=== PATIENT | female | born 1990 | race Caucasian/White ===

== ENCOUNTER 2024-05-19 07:01 | Emergency (ER) | payer OTHER, SELFPAY ==
[2024-05-19 07:07] VITALS: BP 160/94
--- NOTE | 2024-05-19 08:06 | ED.GENMED ---
History of Present Illness
General
Chief Complaint: Chest Pain
Source: patient
Exam Limitations: none
Time Seen by Provider: 05/19/24 07:56
History of Present Illness
History of Present Illness:
34-year-old female otherwise healthy presents complaining of intermittent chest discomfort over the past several months. Discomfort is a dull ache and lasts less than a minute. Sometimes it is made worse with eating. Sometimes is made worse with
exertion. She denies any palpitations. She denies shortness of breath. No recent travel or surgery. No leg swelling or calf pain. No fevers. No other complaints at this time. No family history of cardiac disease. She does not smoke
Phy Exam
Physical Exam
Physical Exam:
General: Well-appearing female no acute respiratory distress
HEENT: Normocephalic atraumatic
Heart: Regular rate and rhythm with no audible murmurs
Lungs: Clear no wheeze
Abdomen is soft nontender nondistended
Extremities: No cyanosis
Scores
Heart Score for Chest Pain Patients
STEMI patient?: No
History: Slightly or Non-Suspicious
ECG: Normal
Age: </= 45 years
Risk Factors: No Risk Factors
Troponin: </= Normal Limit
Heart Score for Chest Pain Patients: 0
Heart Score Risk: 2.5% MACE over next 6 weeks
Course
Orders/Labs/Results
Orders:
Orders
05/19/24 07:11
Electrocardiogram (*1) Urgent
Reason for Study: Chest Pain
EKG- Treatment ONCE
05/19/24 08:04
Test Result ONCE
05/19/24 08:19
Complete Blood Count/With Diff Urgent
Comprehensive Metabolic Panel Urgent
D-Dimer Urgent
HCG, Serum Qualitative Screen Urgent
Lipase Urgent
Troponin I Urgent
05/19/24 08:45
CT Chest PE Study Urgent
Comment:
Reason For Exam: chest pain
Abnormal Lab Results
05/19/24
08:19
Hgb 11.4 L g/dL
(12.0-16.0)
Hct 35.5 L %
(37.0-47.0)
MCV 72.2 L fL
(81.0-99.0)
MCH 23.2 L pg
(27.0-31.0)
MCHC 32.1 L g/dL
(33.0-37.0)
RDW 16.5 H %
(11.5-14.5)
D-Dimer 0.73 H ug/mlFEU
(0.00-0.50)
05/19/24 08:19
05/19/24 08:19
Vital Signs
Initial and Last Documented VS:
Initial Vital Signs
Temp Pulse Resp BP Pulse Ox
98.7 F 117 18 160/94 98
05/19/24 07:07 05/19/24 07:07 05/19/24 07:07 05/19/24 07:07 05/19/24 07:07
Last Documented Vital Signs
Temp Pulse Resp BP Pulse Ox
98.7 F 68 18 128/70 98
05/19/24 07:07 05/19/24 11:16 05/19/24 11:16 05/19/24 11:16 05/19/24 11:16
MDM/Problems Addressed
Differential Diagnosis Includes:
Chest pain atypical in nature. EKG shows sinus rhythm. Will obtain labs including troponin lipase and D-dimer. Do not suspect PE given stable vital signs and lack of risk factors.
*Critical Care Note
Total Time (30-74mins, 75-104mins- exclusive of procedures): Not Applicable
Update Note
Update Note:
D-dimer slightly elevated. CT of the chest was ordered which was negative for any acute cardiopulmonary abnormality. Troponin undetectable. No arrhythmias noted on monitor. Patient with atypical chest pain unlikely to be ACS dissection or PE
given workup. Question GERD versus musculoskeletal versus anxiety. No indication for admission. Stable for discharge
ED Attending Note
-
Portions of this chart may have been created with voice recognition software.� Occasional wrong word or��sound alike� substitutions may have occurred due to the inherent limitations of voice recognition software.
Discharge Plan
Departure
Patient Disposition: Home (Routine Discharge)
Date of Disposition: 05/19/24
Time of Disposition: 11:20
Patient with high blood pressure during this ER visit?: No
Discharge Problem:
Chest pain
Instructions: Chest Pain PCP Follow Up
Prescriptions:
No Action
[id number] 1 mg Tablet
1 tab PO DAILY
ibuprofen 600 mg Tablet
600 mg PO Q4HPRN PRN (Reason: moderate pain/cramps) Qty: 0 0RF
acetaminophen 325 mg Tablet
650 mg PO Q4HPRN PRN (Reason: mild pain) Qty: 0 0RF
Referrals:
NONE,* [Family Provider] -
Activity Restrictions/Additional Instructions:
Return here for worsening symptoms otherwise follow-up with your doctor
Interventions
Interventions:
*Risk Screen - Suicide Last Done: 05/19/24 07:07
*General Assessment Last Done: 05/19/24 07:07
*Neglect/Abuse Screening Last Done: 05/19/24 07:07
*ED- Fall Risk Assessment Last Done: 05/19/24 08:35
*ED COVID-19 Vaccine History Last Done: 05/19/24 08:35
ED- Cardiac Assessment Last Done: 05/19/24 08:35
Discharge Date and Time
Print Language: GEORGIAN
[2024-05-19 08:22] VITALS: BP 122/69
[2024-05-19 08:29] LABS: % Basophils 0.4 % (0-2); % Eosinophils 0.4 % (0-6); % Immature Granulocytes 0.1 % (0-0.5); % Lymphocytes 22.5 % (20.5-51.1); % Monocytes 6.5 % (1.7-9.3); % Neutrophils 70.1 % (42.2-75.2); Absolute Lymphocytes 1.7 10^3/uL (1.2-3.4); Absolute Monocytes 0.5 10^3/uL (0.1-0.6); Absolute Neutrophils 5.2 10^3/uL (1.4-6.5); Hematocrit 35.5 % (37.0-47.0); Hemoglobin 11.4 g/dL (12.0-16.0); Mean Corp Hgb Conc. 32.1 g/dL (33.0-37.0); Mean Corpuscular Hgb 23.2 pg (27.0-31.0); Mean Corpuscular Volume 72.2 fL (81.0-99.0); Mean Platelet Volume 9.7 fL (7.4-10.4); Nucleated Red Blood Cells % 0 %; Platelet Count 314 10^3/uL (130-400); Red Blood Cell Count 4.92 10^6/uL (4.20-5.40); Red Cell Dist. Width 16.5 % (11.5-14.5); White Blood Cell Count 7.4 10^3/uL (4.8-10.8)
[2024-05-19 08:41] LABS: D-Dimer 0.73 ug/mlFEU (0.00-0.50)
[2024-05-19 08:42] LABS: HCG, Serum Qualitative Screen Negative
[2024-05-19 08:46] LABS: ALT (SGPT) 23 U/L (0-35); AST (SGOT) 23 U/L (14-36); Albumin 4.4 g/dl (3.5-5.0); Alkaline Phosphatase 99 U/L (38-126); Blood Urea Nitrogen 11 mg/dl (7-17); Calcium 9.8 mg/dl (8.4-10.2); Carbon Dioxide 23 mmol/L (22-30); Chloride 107 mmol/L (98-107); Glucose 91 mg/dl (70-99); Lipase 44 U/L (23-300); Potassium 4.3 mmol/L (3.5-5.1); Sodium 140 mmol/L (135-145); Total Bilirubin 0.6 mg/dl (0.2-1.3); Total Protein 7.6 g/dl (6.3-8.2); eGFR > 60.00
[2024-05-19 08:56] LABS: Troponin I < 0.012 ng/ml
[2024-05-19 11:16] VITALS: BP 128/70
== END 2024-05-19 11:40 | disposition home or self-care (01) ==
LOC: EMR 07:01
PROVIDERS: Physician Assistant; EMERGENCY PHYSICIAN Emergency Medicine
DX: R07.89 Other chest pain (principal)
CPT/HCPCS: 99284; 71275; 80053; 83690; 84484; 84703; 85025; 85379; 93005; Q9967